=== PATIENT | female | born 1975 | race Caucasian/White ===

== ENCOUNTER 2017-08-27 20:21 | Emergency (ER) | payer MEDICAID ==
[~2017-08-27] VITALS: Ht 162.6 cm; Wt 77.1 kg
[~2017-08-27 20:21] MED LIST: ALBUTEROL; CIPRO; MOTRIN
[2017-08-27 20:25] VITALS: BP 106/72
--- NOTE | 2017-08-27 20:31 | NUR ---
to lobby, via w/c, stable, a/w bed, christina noted
--- NOTE | 2017-08-27 20:44 | NUR ---
41/F CAME IN W C/O 03/08 VAGINAL PAIN, PROGRESSIVELY WORSENING X 2 DAYS. PT REPORTS HX OF ABSCESS X 14 YEARS. DENIES DISCHARGE. DENIES OTHER PMH/RX, STATES SHE IS TAKING "AMPICILLIN FROM [place]", AND IBUPROFEN AT 1500 TODAY
[2017-08-27] MEDS ORDERED: LIDOCAINE 1% 500 MG/50 ML VIAL INJ SCH (21:00)
[2017-08-27] MEDS ORDERED: MORPHINE SULFATE 2 MG/ML SYR IM ONE (21:00)
[2017-08-27] MEDS ORDERED: LIDOCAINE MPF 1% - **ER/OR** 10 ML ONE (21:06)
--- NOTE | 2017-08-27 21:08 | NUR ---
Female Managed Care Specialist DANAE STRICKLAND accompanied ER MD DR HINES for female patient Pelvic I & D.
[2017-08-27 21:48] VITALS: BP 132/75
--- NOTE | 2017-08-27 21:48 | NUR ---
Patient discharged with v/s stable. Written and verbal after care instructions given and explained. Patient alert, oriented and verbalized understanding of instructions. Ambulatory with steady gait. All questions addressed prior to discharge. ID band removed. Patient advised to follow up with PMD. Rx of MOTRIN, CLINDAMYICN, AND TRAMADOL given. Patient educated on indication of medication including possible reaction and side effects. Opportunity to ask questions provided and answered.
== END 2017-08-27 21:48 | disposition home or self-care (01) ==
LOC: MED 20:21
DX: N76.0 Acute vaginitis (principal); J45.909 Unspecified asthma, uncomplicated
CPT/HCPCS: 56405; 96372; 99283; J2001; J2270; 46050; 99284

== ENCOUNTER 2020-12-24 14:48 | Emergency (ER) | payer MEDICAID ==
[~2020-12-24] VITALS: Ht 162.6 cm; Wt 78.9 kg
[2020-12-24 15:22] VITALS: BP 102/70
--- NOTE | 2020-12-24 15:50 | NUR ---
45 Y/O F BIB SELF FROM HOME, PT IS COMING FOR A RECHECK FROM ABSCESS REMOVAL ON VAGINAL AREA. PT HAD REMOVAL ON TUESDAY AND WAS TOLD TO COME TO ER FOR RECHECK. 3/10 PAIN, NO INCREASED PAIN IN AREA OR BLEEDING. PT STATES SHE HAD DISCHARGE COMING OUT OF AREA. PMH: ASTHMA NKA
--- NOTE | 2020-12-24 15:52 | NUR ---
PT WAS ASSESSED BY OLEKSANDR AYERS IN TRIAGE ROOM
--- NOTE | 2020-12-24 16:06 | NUR ---
Patient discharged with v/s stable. Written and verbal after care instructions given and explained. Patient verbalized understanding. Ambulatory with steady gait. All questions addressed prior to discharge. Advised to follow up with PMD.
[2020-12-24 16:08] VITALS: BP 102/70
== END 2020-12-24 16:06 | disposition home or self-care (01) ==
LOC: MED 14:48
DX: N75.0 Cyst of Bartholin's gland (principal); J45.909 Unspecified asthma, uncomplicated; Z79.899 Other long term (current) drug therapy
CPT/HCPCS: 99282